=== PATIENT | female | born 1960 | race Caucasian/White ===

== ENCOUNTER 2017-01-07 09:18 | Inpatient (IN) | payer BC, OTHER ==
[~2017-01-07] VITALS: Ht 160 cm; Wt 56.7 kg
[2017-01-07] MEDS ORDERED: ONDANSETRON 4 MG INJ IV STA ×2 (09:43→11:28)
[2017-01-07] MEDS ORDERED: HYDROmorphONE 1 MG/ML SYG IV STA ×2 (09:43→11:28)
[2017-01-07] MEDS ORDERED: SOD CHLORIDE 0.9% 1,000 ML IV STA (09:43)
[2017-01-07 10:09] LABS: ADD SCAN DIFF NO
[2017-01-07 10:13] LABS: BASOPHILS % 0.2 % (0.0-2.0); EOSINOPHILS # 0.1 10^3/ul (0.0-0.5); EOSINOPHILS % 1.1 % (0.0-7.0); HEMOGLOBIN 13.5 g/dl (12.0-16.0); LYMPHOCYTES # 1.6 10^3/ul (0.8-2.9); LYMPHOCYTES % 20.1 % (15.0-51.0); MEAN CORPUSCULAR HEMOGLOBIN 31.1 pg (29.0-33.0); MEAN CORPUSCULAR HGB CONC 33.8 g/dl (32.0-37.0); MEAN CORPUSCULAR VOLUME 92.2 fl (82.0-101.0); MEAN PLATELET VOLUME 9.5 fl (7.4-10.4); MONOCYTE # 0.4 10^3/ul (0.3-0.9); MONOCYTES % 5.1 % (0.0-11.0); NEUTROPHILS % 73.3 % (39.0-77.0); PLATELET COUNT 215 10^3/UL (140-415); RED BLOOD COUNT 4.34 10^6/ul (4.20-5.40); RED CELL DISTRIBUTION WIDTH 12.7 % (11.5-14.5); WHITE BLOOD COUNT 8.2 10^3/ul (4.8-10.8)
[2017-01-07 10:21] LABS: POTASSIUM 3.7 mmol/L (3.5-5.1)
[2017-01-07 10:23] LABS: ALBUMIN/GLOBULIN RATIO 1.66; BILIRUBIN,INDIRECT 0.3 mg/dl (0-1.1); BILIRUBIN,TOTAL 0.3 mg/dl (0.2-1.3); CREATININE 0.57 mg/dl (0.44-1.00); TOTAL PROTEIN 6.4 g/dl (6.1-8.1)
[2017-01-07 10:23] LABS: ADD UMIC NO; URINE BILIRUBIN (Dip) NEGATIVE (NEGATIVE); URINE BLOOD (Dip) NEGATIVE (NEGATIVE); URINE COLOR LT. YELLOW (YELLOW); URINE GLUCOSE (Dip) NEGATIVE (NEGATIVE); URINE KETONES (Dip) NEGATIVE (NEGATIVE); URINE LEUKOCYTE ESTERASE (Dip) NEGATIVE (NEGATIVE); URINE NITRITE (Dip) NEGATIVE (NEGATIVE); URINE TOTAL PROTEIN (Dip) NEGATIVE (NEGATIVE); URINE UROBILINOGEN (Dip) 0.2 E.U./dL (0.1-1.0)
[2017-01-07 10:24] LABS: CALCIUM 10.2 mg/dl (8.4-10.2)
--- NOTE | 2017-01-07 10:34 | RADRPT ---
PROCEDURE: US Abdomen (right upper quadrant). CLINICAL INDICATION: Right upper quadrant abdomen pain. TECHNIQUE: Multiple real-time longitudinal and transverse images of the right upper quadrant of th e abdomen were acquired utilizing a curved array transducer. Images were reviewed on a high-resoluti on PACS workstation. COMPARISON: None FINDINGS: The liver is normal in size and echogenicity. There is no focal hepatic lesion. Color Doppler and pulsed Doppler sonography demonstrate normal a ntegrade flow in the portal vein. The gallbladder is normal with no stones or wall thickening. There is no pericholecystic fluid natali ection. The bile ducts are normal with the common bile duct measuring 3.6 mm in diameter. The visualized portions of the pancreas are unremarkable with obscuration of the tail of the pancrea s. No free fluid is present. The right kidney measures 11.1 x 3.7 x 4.6 cm. There is normal echogenicity of the right kidney. There is no perinephric fluid collection. No hydronephrosis, mass, or calculus is seen. IMPRESSION: 1. Unremarkable right upper quadrant abdomen ultrasound. RPTAT: QQ .Vikram Dominguez MD, Date Time Electronically viewed and signed by .Vikram Dominguez MD, on 01/07/2017 10:33 .R/
--- NOTE | 2017-01-07 10:41 | RADRPT ---
PROCEDURE: CT Abdomen and Pelvis without contrast. CLINICAL INDICATION: Abdominal and pelvic pain. Vomiting. TECHNIQUE: CT scan of the abdomen and pelvis without contrast was performed. Coronal and sagittal reformatted images were obtained from the axial source images. Images were reviewed on a high-resolu aka-aki [employer]on PACS workstation. Total exam DLP is 283.03 mGy-cm. CTDIvol is 5.16 mGy. One or more of the fo llowing dose reduction techniques were used: Automated exposure control, adjustment of the mA and/or kV according to patient size, use of iterative reconstruction technique. COMPARISON: None. FINDINGS: The lung bases are normal. There is no pleural effusion. The liver is normal in size and attenuation. There is no focal hepatic lesion. The gallbladder and bile ducts are normal. The spleen is normal in size. There is no focal splenic lesion. Both adrenals are normal with no enlargement or mass. The pancreas is grossly abnormal with enlargement of the head and neck and surrounding mesenteric ed george consistent with acute pancreatitis. There is no fluid collection or mass to suggest abscess or pseudocyst. Small calcifications are present in the head of the pancreas consistent with chronic pa ncreatitis. There is no renal mass or hydronephrosis. There is no renal calculus or ureteral calculus. The abdominal aorta is not dilated. There is no retroperitoneal lymphadenopathy or mass. There is no pelvic lymphadenopathy or mass. The bladder and distal ureters are normal. The periappendiceal region is unremarkable with no evidence of appendicitis. The bowel is unremarkable. There is no free air. A small amount of free fluid is present in the pelvis. The osseous structures are unremarkable with no fracture or lytic lesion. IMPRESSION: 1. Acute pancreatitis. No abscess or pseudocyst. 2. Calcifications in the head of the pancreas consistent with chronic pancreatitis. 3. Small amount of free fluid in the pelvis. 4. Otherwise normal CT scan of the abdomen and pelvis. RPTAT: QQ .Vikram Dominguez MD, MD Date Time Electronically viewed and signed by .Vikram Dominguez MD, on 01/07/2017 10:41 .R/
[2017-01-07] MEDS ORDERED: ALPR2TAB PO (11:37)
[2017-01-07] MEDS ORDERED: LIOT25TA3 PO (11:38)
--- NOTE | 2017-01-07 11:54 | ERA ---
ER Documentation Chief Complaint Date/Time DATE: 01/07/17 TIME: 11:50 Chief Complaint R SIDE SUDDEN ONSET ABD PAIN WITH NAUSEA ONSET ABOUT 0300 HPI 56 yo F no pmhx who presents to ED with abd pain. Sudden onset of right sided abdominal pain since 3 am. Associated NBNB emesis and single loose stool. Patient does drink ETOH daily. No chest pain, cough. Pain is 10/10. ROS All systems reviewed and are negative except as per history of present illness. Medications Home Meds Reported Medications Liothyronine Sodium* (Cytomel*) 25 Mcg Tablet, 25 MCG PO DAILY, TAB 01/07/17 Alprazolam* (Xanax*) 2 Mg Tablet, 2 MG PO QHS Y for ANXIETY, TAB 01/07/17 Allergies Allergies: Coded Allergies: No Known Allergy (Unverified , 01/07/17) PMhx/Soc History of Surgery: Yes (sinus) Anesthesia Reaction: No Hx Neurological Disorder: No Hx Respiratory Disorders: No Hx Cardiac Disorders: No Hx Psychiatric Problems: Yes (anxiety) Hx Miscellaneous Medical Probl: Yes (ulcers) Hx Alcohol Use: Yes Hx Substance Use: No Hx Tobacco Use: Yes Smoking Status: Current every day smoker FmHx Family History: No diabetes Physical Exam Vitals Vital Signs Date Time Temp Pulse Resp B/P Pulse Ox O2 Delivery O2 Flow Rate FiO2 01/07/17 10:00 98.8 80 22 160/94 97 Room Air 01/07/17 09:26 98.8 80 22 160/94 97 Physical Exam General: Well developed, well nourished, no acute distress Head: Normocephalic, atraumatic. Eyes: Pupils equally reactive, EOM intact ENT: Moist mucous membranes Neck: Supple, no lymphadenopathy Respiratory: Lungs clear bilaterally, no distress Cardiovascular: RRR, no murmurs, rubs, or gallops Abdominal: Soft, right sided abd TTP neg murphys and no TTP at mcburneys : Deferred MSK: No edema, no unilateral swelling, 5/5 strength Neurologic: Alert and oriented, moving all extremities, normal speech, no focal weakness, no cerebellar signs Skin: No rash Psych: Normal mood Result Diagram: 01/07/17 0950 01/07/17 0950 Results 24 hrs Laboratory Tests Test 01/07/17 09:50 01/07/17 10:14 Alanine Aminotransferase (ALT/SGPT) 25IU/L Albumin 4.0g/dl Albumin/Globulin Ratio 1.66 Alkaline Phosphatase 91IU/L Anion Gap 16 Aspartate Amino Transf (AST/SGOT) 25IU/L Basophils # 0.010^3/ul Basophils % 0.2% Blood Urea Nitrogen 12mg/dl Calcium Level 10.2mg/dl Carbon Dioxide Level 28mmol/L Chloride Level 107mmol/L Creatinine 0.57mg/dl Direct Bilirubin 0.00mg/dl Eosinophils # 0.110^3/ul Eosinophils % 1.1% Globulin 2.40g/dl Glucose Level 101mg/dl Hematocrit 40.0% Hemoglobin 13.5g/dl Indirect Bilirubin 0.3mg/dl Lipase 50710I/L Lymphocytes # 1.610^3/ul Lymphocytes % 20.1% Mean Corpuscular Hemoglobin 31.1pg Mean Corpuscular Hemoglobin Concent 33.8g/dl Mean Corpuscular Volume 92.2fl Mean Platelet Volume 9.5fl Monocytes # 0.410^3/ul Monocytes % 5.1% Neutrophils # 6.010^3/ul Neutrophils % 73.3% Nucleated Red Blood Cells # 0.010^3/ul Nucleated Red Blood Cells % 0.0/100WBC Platelet Count 68113^3/UL Potassium Level 3.7mmol/L Red Blood Count 4.3410^6/ul Red Cell Distribution Width 12.7% Sodium Level 147mmol/L Total Bilirubin 0.3mg/dl Total Protein 6.4g/dl White Blood Count 8.210^3/ul Urine Bilirubin NEGATIVE Urine Clarity CLEAR Urine Color LT. YELLOW Urine Glucose NEGATIVE% Urine Hemoglobin NEGATIVE Urine Ketones NEGATIVE Urine Leukocyte Esterase NEGATIVE Urine Nitrite NEGATIVE Urine Specific [place] 1.020 Urine Total Protein NEGATIVE Urine Urobilinogen 0.2 E.U./dL Urine pH 6.0 Current Medications Medications (Trade) Dose Ordered Sig/Mike Route PRN Reason Start Time Stop Time Status Last Admin Dose Admin Sodium Chloride (NS) 1,000 ml @ 1,000 mls/hr Q1H STAT IV 01/07/17 09:43 01/07/17 10:42 DC 01/07/17 09:50 Hydromorphone HCl (Dilaudid) 1 mg ONCE STAT IV 01/07/17 09:43 01/07/17 09:45 DC 01/07/17 09:51 Ondansetron HCl (Zofran Inj) 4 mg ONCE STAT IV 01/07/17 09:43 01/07/17 09:45 DC 01/07/17 09:50 Hydromorphone HCl (Dilaudid) 1 mg ONCE STAT IV 01/07/17 11:28 01/07/17 11:29 DC 01/07/17 11:34 Ondansetron HCl (Zofran Inj) 4 mg ONCE STAT IV 01/07/17 11:28 01/07/17 11:29 DC 01/07/17 11:33 Ondansetron HCl (Zofran Inj) 4 mg BRIDGE ORDER PRN IV NAUSEA AND/OR VOMITING 01/07/17 12:00 01/08/17 11:59 Acetaminophen (Tylenol Tab) 650 mg ER BRIDGE PRN PO MILD PAIN/FEVER 01/07/17 12:00 01/08/17 11:59 Procedures/MDM EKG, MONITORS, & DIAGNOSTIC IMAGING: CT a/p IMPRESSION: 1. Acute pancreatitis. No abscess or pseudocyst. 2. Calcifications in the head of the pancreas consistent with chronic pancreatitis. 3. Small amount of free fluid in the pelvis. 4. Otherwise normal CT scan of the abdomen and pelvis. RPTAT: QQ US gb IMPRESSION: 1. Unremarkable right upper quadrant abdomen ultrasound. RPTAT: QQ LAB INTERPRETATION: elevated lipase MEDICAL DECISION MAKING: Patient with right sided abdominal pain. Broad differential including bowel obstruction, acute appendicitis. Less concern for hepatobiliary obstruction. Consider pancreatitis given alcohol use. Patient seems to be in an extreme amount of pain. Low concern for acute aortic process. ER COURSE: The patient has been given IV fluids multiple doses of pain medication. Laboratory analysis shows significant acute pancreatitis. The patient does drink alcohol which is likely the source. No evidence of hepatobiliary obstruction. Inpatient hospitalization, n.p.o. status would be reasonable. Patient is agreeable. Given significant elevation of lipase patient is at high risk for complications. I kept the patient and/or family informed of laboratory and diagnostic imaging results throughout the emergency room course. DISPOSITION PLAN: Medical surgical admission for management of acute pancreatitis CONSULTATION: Accepting care team and consultations: I discussed the current laboratory data, diagnostic imaging and emergency care provided. Admitting team: Dr. Taylor Admitting team indication: Insurance directed Departure Diagnosis: Primary Impression: Acute pancreatitis Qualified Code: K85.90 - Acute pancreatitis, unspecified complication status, unspecified pancreatitis type Additional Impression: Right sided abdominal pain Condition: Stable ABBY TAM MD Jan 07, 2017 11:54
[2017-01-07] MEDS ORDERED: ONDANSETRON 4 MG INJ IV PRN ×2 (12:00→15:30)
[2017-01-07] MEDS ORDERED: ACETAMINOPHEN 325 MG TAB PO PRN (12:00)
[2017-01-07 12:05] VITALS: TEMP 98.5
[2017-01-07 13:00] VITALS: BP 142/85; PULSE 67; RESP 20
[2017-01-07 13:34] VITALS: Ht 160 cm; Wt 56.7 kg
[2017-01-07] MEDS ORDERED: morphine 4 MG/ML VIAL IV PRN (15:30)
[2017-01-07] MEDS ORDERED: hydrALAzine 20 MG INJ IV PRN (15:30)
[2017-01-07] MEDS: DEXTROSE 5%-0.45% NACL 1,000 ML IV SCH ×2 (15:50→23:52)
[2017-01-07] MEDS: morphine 10 MG INJ IV PRN ×2 (19:34→23:55)
[2017-01-07] MEDS: FAMOTIDINE 20 MG INJ IV SCH (20:40)
[2017-01-07] MEDS: DOCUSATE SODIUM 100 MG CAP PO SCH (20:40)
[2017-01-07] MEDS: CHLORDIAZEPOXIDE 25 MG CAP PO SCH (20:40)
[2017-01-07 22:09] VITALS: BP 159/89; RESP 20
--- NOTE | 2017-01-08 05:04 | HP ---
DATE OF ADMISSION: 01/07/2017 PRESENTING COMPLAINT: Abdominal pain. HISTORY OF PRESENTING COMPLAINT: This is a 56-year-old female who reports that she daily drink a sm all glass of wine with dinner, sometimes more than one glass, but does not consider herself a heavy alcohol use. She reports that she was in her normal state of health until about 3:15 a.m. this morn ing when she was woken up with the worst pain she has ever felt in her abdomen. Interestingly, pain is not in the epigastric area only but is more in the right mid flank area and radiates upward to t he right upper quadrant and epigastric area. It was associated with a lot of nausea and vomiting. She actually had 3 bowel movements, 2 of which were normal, and 1 was diarrhea. She had no fever or BPH. There was no blood in her stool or in her urine. She had no black stools. She denies ever h aving any episodes of pancreatitis before; however, in the emergency room, serum lipase was elevated at 19,000 consistent with the diagnosis of acute pancreatitis, likely secondary to alcohol use. Amara prather is being admitted for this. PAST MEDICAL HISTORY: The patient reports only, I believe, borderline hypertension. The patient kelly s a history of hypothyroidism. PAST SURGICAL HISTORY: She has had ____ surgery, and she had a history of GI bleed which she report s is from medications she is using for chronic migraines. ALLERGIES: NO KNOWN ALLERGIES. SOCIAL HISTORY: Drinks a glass of wine daily and smokes tobacco but is trying to quit. Occasional marijuana use. FAMILY HISTORY: Positive for pancreatic cancer in her father, not alcohol related. REVIEW OF SYSTEMS: A 12-point review of system was done. Pertinent findings are as noted in the HP I. PHYSICAL EXAMINATION: VITAL SIGNS: When she came in, temperature 98.8, pulse was 80, respirations 22, blood pressure 160/ 94, saturations 97% on room air. When I saw the patient, she was lying in bed. She seemed comforta ble, but she was asking for pain medicine. HEENT: Head was normocephalic. Pupils equal and reactive. Mucous membranes were moist. There was no scleral jaundice, mild conjunctival pallor. Posterior pharynx was clear of exudate. NECK: Supple without adenopathy, JVD, or tenderness. CHEST: Clear to auscultation with good air entry on both sides. CARDIOVASCULAR: Heart sounds S1 and 2 without murmurs or tachycardia. ABDOMEN: She was mildly tender in the epigastric and right upper quadrant and actually right mid ab domen as well. However, the rest of the abdomen was soft, nondistended, and she had normoactive bow el sounds. EXTREMITIES: She had no lower extremity edema. NEUROLOGIC: She was able to move all 4 extremities without deficits. She had no facial asymmetry. SKIN: Devoid of rash or jaundice. LABORATORY VALUES: CBC was completely normal as was a CMP. Abnormality on her labs was the sodium of 147 and lipase level of 19,647. Urinalysis was not suggestive of a urinary tract infection. She had a CT of the abdomen and pelvis without contrast that showed acute pancreatitis with no abscess or pseudocyst. There were calcifications in the head of the pancreas consistent with chronic pancre atitis and a small amount of free fluid in the pelvis. The patient had a gallbladder ultrasound padmaja t was read as unremarkable with no CBD dilation. Gallbladder was normal with no stools or wall thic kening and no pericholecystic fluid collection. IMPRESSION: A 56-year-old female who presented with acute onset abdominal pain with the followin. Acute on chronic pancreatitis, likely alcohol related. 2. History of pancreatic cancer. 3. Alcohol abuse, although the patient is not aware of this. 4. Chronic hypothyroidism. PLAN: Admit the patient and manage her per recommendations. The plan of care for pancreatitis with n.p.o., intravenous fluids, pain control, and H2 sarai therapy IV b.i.d. Because of her history of alcoholism, she is also going to be put on a banana bag. For her thyroid disease, we will resume her home Cytomel. We will get a TSH and thyroid profile to assess her chronic control. We will al so get a lipid profile to ensure that her pancreatitis is not from hypertriglyceridemia, though base d on her history, it is likely from alcohol use. She will probably benefit from provision of resour heather to help with alcohol abuse; however, as the patient is not convinced that she has an alcohol pro blem, she is unlikely to make use of those. Prophylaxis will be with H2 sarai and SCDs. For inte rventions and further information, please review the patient's chart and my orders. Admission time has been about 45 minutes. Dictated By: JOY NORRIS MD, BA/YOGI PARISI: 01/07/2017 19:35:05 Conf#: [id number] DID#: [id number]
[2017-01-08 05:40] LABS: ADD SCAN DIFF NO
[2017-01-08 05:51] LABS: ALBUMIN 3.5 g/dl (3.3-4.9)
[2017-01-08 05:52] LABS: POTASSIUM 3.5 mmol/L (3.5-5.1)
[2017-01-08 05:53] LABS: BASOPHILS % 0.4 % (0.0-2.0); EOSINOPHILS # 0.2 10^3/ul (0.0-0.5); EOSINOPHILS % 4.8 % (0.0-7.0); HEMATOCRIT 36.2 % (37.0-47.0); HEMOGLOBIN 11.9 g/dl (12.0-16.0); LYMPHOCYTES # 2.1 10^3/ul (0.8-2.9); MEAN CORPUSCULAR HGB CONC 32.9 g/dl (32.0-37.0); MEAN CORPUSCULAR VOLUME 94.3 fl (82.0-101.0); MEAN PLATELET VOLUME 9.6 fl (7.4-10.4); MONOCYTE # 0.4 10^3/ul (0.3-0.9); NEUTROPHIL # 2.2 10^3/ul (1.6-7.5); NEUTROPHILS % 44.6 % (39.0-77.0); PLATELET COUNT 186 10^3/UL (140-415); RED BLOOD COUNT 3.84 10^6/ul (4.20-5.40); RED CELL DISTRIBUTION WIDTH 12.8 % (11.5-14.5)
[2017-01-08 05:54] LABS: ALBUMIN/GLOBULIN RATIO 1.52; BILIRUBIN,INDIRECT 0.3 mg/dl (0-1.1); BILIRUBIN,TOTAL 0.3 mg/dl (0.2-1.3); CREATININE 0.6 mg/dl (0.44-1.00); TOTAL PROTEIN 5.8 g/dl (6.1-8.1)
[2017-01-08 05:55] LABS: CALCIUM 8.4 mg/dl (8.4-10.2); MAGNESIUM 1.7 mg/dl (1.7-2.5)
[2017-01-08 06:25] LABS: THYROID STIMULATING HORMONE 4.85 MIU/L (0.465-4.680)
[2017-01-08] MEDS: DEXTROSE 5%-0.45% NACL 1,000 ML IV SCH ×3 (07:30→17:07)
[2017-01-08 07:48] VITALS: BP 130/74; RESP 18
[2017-01-08] MEDS: FAMOTIDINE 20 MG INJ IV SCH ×2 (08:15→21:14)
[2017-01-08] MEDS: MULTIVITAMINS 10 ML, THIAMINE 100 MG, FOLIC ACID 1 MG in SOD CHLORIDE 0.9% 1,000 ML IVPB SCH (08:15)
[2017-01-08] MEDS: CHLORDIAZEPOXIDE 25 MG CAP PO SCH ×3 (08:15→21:13)
[2017-01-08] MEDS: DOCUSATE SODIUM 100 MG CAP PO SCH ×2 (08:15→21:13)
[2017-01-08] MEDS: HYDROCODONE/APAP (7.5/325) TAB PO PRN ×3 (08:15→21:14)
[2017-01-08] MEDS ORDERED: INFLUENZA VIRUS VACCINE 0.5 ML (DISPENSING) IM* ONE (09:00)
[2017-01-08] MEDS ORDERED: LIOTHYRONINE 25 MCG TAB PO SCH (09:00)
--- NOTE | 2017-01-08 11:50 | PN ---
Date/Time of Note Date/Time of Note DATE: 01/08/17 TIME: 11:45 Assessment/Plan VTE Prophylaxis VTE Prophylaxis Intervention: contraindicated Lines/Catheters IV [facility] Peripheral IV Urinary Cath still in place: No Assessment/Plan Problems: (1) Hypothyroidism (acquired) Status: Chronic Comment: Patient reports she has always been treated with liothyronine as opposed to any other replacement preparation. This is somewhat interesting regimen given the liothyronine does not have the serum half-life to be used on a once a day basis. I will transition her over to a more commonly use therapeutic (2) Migraine syndrome Status: Chronic Comment: She is having migraine now but reports she gets migraine less than once a month. Please note that her cyclical vomiting could be on this although given some of the other social features and the pancreatitis and the imaging I am not thinking so. Right now she does not make criteria for administration of prophylactic therapy (3) History of peptic ulcer disease Status: Resolved Comment: She reports a remote history of peptic ulcer disease with major GI bleed in the past while using a lot of nonsteroidal anti-inflammatory drugs for headaches. (4) Alcohol consumption four to six days per week Status: Chronic Comment: In reviewing with her she reports that she drinks every day and drinks alternatively between 4 ounce glass of wine and a whole bottle. In addition there are mixed drinks involved. Given the totality of everything I suspect that her alcohol consumption is high enough to have caused the problems please see below (5) Acute pancreatitis Status: Acute Comment: Patient again denies any known prior history of pancreatitis but based on the CT scan I believe she does have chronic pancreatitis. I do not believe that this is on the basis of an undiagnosed case of cystic fibrosis or hypertriglyceridemia or gallstones etc. She has been counseled that she must discontinue alcohol consumption per permanently. In the meantime in this acute phase she is improving nicely Qualifiers: Pancreatitis type: unspecified pancreatitis type Acute pancreatitis complication: unspecified Qualified Code: K85.90 - Acute pancreatitis, unspecified complication status, unspecified pancreatitis type Subjective 24 Hr Interval Summary Free Text/Dictation Patient reports that she is having a headache and her abdominal pain but is better Constitutional: no complaints (Denies fever chills or sweats) Eyes: no complaints (Denies scintillating scotomata) ENT: no complaints Respiratory: no complaints Gastrointestinal: pain (Right sided abdominal pain but less so) Genitourinary: no complaints Musculoskeletal: no complaints Neurologic: headache (Having a migraine at this time) Exam/Review of Systems Vital Signs Vitals Vital Signs Date Time Temp Pulse Resp B/P Pulse Ox O2 Delivery O2 Flow Rate FiO2 01/08/17 07:48 98.8 68 18 130/74 96 01/07/17 13:00 Room Air Intake and Output 01/07/17 01/07/17 01/08/17 14:59 22:59 06:59 Intake Total 375 ml 1250 ml Balance 375 ml 1250 ml Exam Constitutional: alert, oriented Neck: non-tender, supple Respiratory: clear to auscultation, normal air movement Cardiovascular: nl pulses, regular rate and rhythm Gastrointestinal: tender (Right upper quadrant) Results Result Diagram: 01/08/172 01/08/17 0452 Results 24 hrs Laboratory Tests Test 01/08/17 04:52 Alanine Aminotransferase (ALT/SGPT) 29 Albumin 3.5 Albumin/Globulin Ratio 1.52 Alkaline Phosphatase 83 Amylase Level 519 H Anion Gap 14 Aspartate Amino Transf (AST/SGOT) 22 Basophils # 0.0 Basophils % 0.4 Blood Urea Nitrogen 4 L Calcium Level 8.4 Carbon Dioxide Level 30 Chloride Level 105 Cholesterol Level 158 Cholesterol/HDL Ratio 2.0 Creatinine 0.60 Direct Bilirubin 0.00 Eosinophils # 0.2 Eosinophils % 4.8 Free Thyroxine Index 0.56 L Globulin 2.30 Glucose Level 87 HDL Cholesterol 76 Hematocrit 36.2 L Hemoglobin 11.9 L Indirect Bilirubin 0.3 LDL Cholesterol, Calculated 62 Lipase 5378 H Lymphocytes # 2.1 Lymphocytes % 42.0 Magnesium Level 1.7 Mean Corpuscular Hemoglobin 31.0 Mean Corpuscular Hemoglobin Concent 32.9 Mean Corpuscular Volume 94.3 Mean Platelet Volume 9.6 Monocytes # 0.4 Monocytes % 8.0 Neutrophils # 2.2 Neutrophils % 44.6 Nucleated Red Blood Cells # 0.0 Nucleated Red Blood Cells % 0.0 Platelet Count 186 Potassium Level 3.5 Red Blood Count 3.84 L Red Cell Distribution Width 12.8 Sodium Level 145 H Thyroid Stimulating Hormone (TSH) 4.850 H Thyroxine (T4) 1.6 *L Total Bilirubin 0.3 Total Protein 5.8 L Triglycerides Level 101 Triiodothyronine (T3) Uptake 35.0 White Blood Count 5.0 # Medications Medications Current Medications Ondansetron HCl (Zofran Inj) 4 mg Q6H PRN IV NAUSEA AND/OR VOMITING Last administered on 01/08/17 08:13; Admin Dose 4 MG; Start 01/07/17 at 15:30 Acetaminophen/ Hydrocodone Bitart (Amo (7.5-325)) 1 tab Q6H PRN PO pain Last administered on 01/08/17 08:15; Admin Dose 1 TAB; Start 01/07/17 at 15:30 Docusate Sodium 100 mg 100 mg BID PO Last administered on 01/08/17 08:15; Admin Dose 100 MG; Start 01/07/17 at 21:00 Dextrose/Sodium Chloride 1,000 ml @ 125 mls/hr Q8H IV Last administered on 23:52; Admin Dose 125 MLS/HR; Start 01/07/17 at 15:30 Multivitamins/ Thiamine HCl/ Folic Acid/Sodium Chloride (Mvi-12 Adult/ Vitamin B1/Folic Acid/NS) 1,011.2 ml @ 125 mls/ hr DAILY@09 IVPB Last administered on 01/08/17 08:15; Admin Dose 125 MLS/HR; Start 01/08/17 at 09:00; Stop 01/11/17 at 08:59 Famotidine (Pepcid Iv) 20 mg BID IV Last administered on 01/08/17 08:15; Admin Dose 20 MG; Start 01/07/17 at 21:00 Chlordiazepoxide (Librium) 25 mg TID PO Last administered on 01/08/17 08:15; Admin Dose 25 MG; Start 01/07/17 at 21:00 Lorazepam (Ativan) 0.5 mg Q6H PRN IV anxiety; Start 01/07/17 at 15:30 Liothyronine Sodium (Cytomel) 25 mcg DAILY PO Last administered on 01/08/17 08 :15; Admin Dose 25 MCG; Start 01/08/17 at 09:00 Hydralazine HCl (Apresoline) 10 mg Q6H PRN IV sbp>160mmhg; Start 01/07/17 at 15 :30 Morphine Sulfate (morphine) 5 mg Q4H PRN IV PAIN Last administered on 23:55; Admin Dose 5 MG; Start 01/07/17 at 19:30 MARY CASTANEDA MD Jan 08, 2017 11:50
[2017-01-08] MEDS ORDERED: LEVOTHYROXINE 125 MCG TAB PO ONE (12:00)
[2017-01-08] MEDS: morphine 10 MG INJ IV PRN ×2 (15:38→20:08)
[2017-01-08 19:30] VITALS: BP 139/84; PULSE 75; RESP 18
[2017-01-09] MEDS: morphine 10 MG INJ IV PRN ×4 (00:01→17:34)
[2017-01-09] MEDS: DEXTROSE 5%-0.45% NACL 1,000 ML IV SCH ×4 (00:04→18:06)
[2017-01-09] MEDS: LEVOTHYROXINE 125 MCG TAB PO SCH (05:49)
[2017-01-09 06:01] LABS: ADD SCAN DIFF NO
[2017-01-09 06:16] LABS: BASOPHILS % 0.3 % (0.0-2.0); EOSINOPHILS # 0.4 10^3/ul (0.0-0.5); EOSINOPHILS % 6.1 % (0.0-7.0); HEMATOCRIT 35.4 % (37.0-47.0); HEMOGLOBIN 11.9 g/dl (12.0-16.0); LYMPHOCYTES # 1.9 10^3/ul (0.8-2.9); LYMPHOCYTES % 29.9 % (15.0-51.0); MEAN CORPUSCULAR HEMOGLOBIN 31.5 pg (29.0-33.0); MEAN CORPUSCULAR HGB CONC 33.6 g/dl (32.0-37.0); MEAN CORPUSCULAR VOLUME 93.7 fl (82.0-101.0); MONOCYTE # 0.6 10^3/ul (0.3-0.9); MONOCYTES % 8.8 % (0.0-11.0); NEUTROPHIL # 3.4 10^3/ul (1.6-7.5); NEUTROPHILS % 54.6 % (39.0-77.0); PLATELET COUNT 165 10^3/UL (140-415); RED BLOOD COUNT 3.78 10^6/ul (4.20-5.40); RED CELL DISTRIBUTION WIDTH 12.6 % (11.5-14.5); WHITE BLOOD COUNT 6.2 10^3/ul (4.8-10.8)
[2017-01-09 06:34] LABS: ALBUMIN 3.4 g/dl (3.3-4.9); POTASSIUM 3.2 mmol/L (3.5-5.1)
[2017-01-09 06:37] LABS: ALBUMIN/GLOBULIN RATIO 1.41; BILIRUBIN,INDIRECT 0.3 mg/dl (0-1.1); BILIRUBIN,TOTAL 0.3 mg/dl (0.2-1.3); CALCIUM 8.9 mg/dl (8.4-10.2); CREATININE 0.57 mg/dl (0.44-1.00); TOTAL PROTEIN 5.8 g/dl (6.1-8.1)
[2017-01-09] MEDS: HYDROCODONE/APAP (7.5/325) TAB PO PRN ×3 (07:45→20:17)
[2017-01-09 07:52] VITALS: BP 127/76; RESP 20
[2017-01-09] MEDS: MULTIVITAMINS 10 ML, THIAMINE 100 MG, FOLIC ACID 1 MG in SOD CHLORIDE 0.9% 1,000 ML IVPB SCH (08:18)
[2017-01-09] MEDS: FAMOTIDINE 20 MG INJ IV SCH ×2 (08:18→20:17)
[2017-01-09] MEDS: THIAMINE 100 MG TAB PO SCH (08:18)
[2017-01-09] MEDS: DOCUSATE SODIUM 100 MG CAP PO SCH ×2 (08:18→20:17)
[2017-01-09] MEDS: CHLORDIAZEPOXIDE 25 MG CAP PO SCH ×3 (08:19→20:18)
[2017-01-09] MEDS: LORAZEPAM 2 MG INJ IV PRN ×2 (08:57→22:48)
[2017-01-09] MEDS: OXYMETAZOLINE NASAL SCH ×3 (12:00→20:17)
--- NOTE | 2017-01-09 18:44 | PN ---
Date/Time of Note Date/Time of Note DATE: 01/09/17 TIME: 18:39 Assessment/Plan VTE Prophylaxis VTE Prophylaxis Intervention: ambulation Lines/Catheters IV Catheter Type (from [facility]): Peripheral IV Urinary Cath still in place: No Assessment/Plan Chief Complaint/Hosp Course 1. Acute pancreatitis possibly secondary to alcohol abuse Start a clear liquid diet today Alternative etiologies such as gallstones are unlikely as gallbladder ultrasound and CT abdomen are normal 2. Hypothyroidism Patient reports she has always been treated with liothyronine as opposed to any other replacement preparation. This is somewhat interesting regimen given the liothyronine does not have the serum half-life to be used on a once a day basis , started on Synthroid 3. Migraine headaches Pain control 4. Hypokalemia Replete Prophylaxis: Ambulate Problems: Subjective 24 Hr Interval Summary Constitutional: no complaints Exam/Review of Systems Vital Signs Vitals Vital Signs Date Time Temp Pulse Resp B/P Pulse Ox O2 Delivery O2 Flow Rate FiO2 01/09/17 07:52 98.6 71 20 127/76 95 01/08/17 19:30 Room Air Intake and Output 01/08/17 01/08/17 01/09/17 15:00 23:00 07:00 Intake Total 375 ml 1236.2 ml 1690 ml Balance 375 ml 1236.2 ml 1690 ml Exam Constitutional: alert, oriented Respiratory: clear to auscultation Cardiovascular: regular rate and rhythm Gastrointestinal: non-tender, soft, No distended Musculoskeletal: nl extremities to inspection Results Result Diagram: 01/09/17 0526 01/09/17 0526 Results 24 hrs Laboratory Tests Test 01/09/17 05:26 Alanine Aminotransferase (ALT/SGPT) 17 Albumin 3.4 Albumin/Globulin Ratio 1.41 Alkaline Phosphatase 80 Amylase Level 400 #H Anion Gap 13 Aspartate Amino Transf (AST/SGOT) 19 Basophils # 0.0 Basophils % 0.3 Blood Urea Nitrogen 2 L Calcium Level 8.9 Carbon Dioxide Level 30 Chloride Level 107 Creatinine 0.57 Direct Bilirubin 0.00 Eosinophils # 0.4 Eosinophils % 6.1 Globulin 2.40 Glucose Level 101 Hematocrit 35.4 L Hemoglobin 11.9 L Indirect Bilirubin 0.3 Lipase 4350 H Lymphocytes # 1.9 Lymphocytes % 29.9 Mean Corpuscular Hemoglobin 31.5 Mean Corpuscular Hemoglobin Concent 33.6 Mean Corpuscular Volume 93.7 Mean Platelet Volume 10.0 Monocytes # 0.6 Monocytes % 8.8 Neutrophils # 3.4 Neutrophils % 54.6 Nucleated Red Blood Cells # 0.0 Nucleated Red Blood Cells % 0.0 Platelet Count 165 Potassium Level 3.2 L Red Blood Count 3.78 L Red Cell Distribution Width 12.6 Sodium Level 147 H Total Bilirubin 0.3 Total Protein 5.8 L White Blood Count 6.2 # Medications Medications Current Medications Ondansetron HCl (Zofran Inj) 4 mg Q6H PRN IV NAUSEA AND/OR VOMITING Last administered on 01/08/17 08:13; Admin Dose 4 MG; Start 01/07/17 at 15:30 Acetaminophen/ Hydrocodone Bitart (Dema (7.5-325)) 1 tab Q6H PRN PO pain Last administered on 01/09/17 14:15; Admin Dose 1 TAB; Start 01/07/17 at 15:30 Docusate Sodium 100 mg 100 mg BID PO Last administered on 01/09/17 08:18; Admin Dose 100 MG; Start 01/07/17 at 21:00 Dextrose/Sodium Chloride 1,000 ml @ 125 mls/hr Q8H IV Last administered on 18:06; Admin Dose 125 MLS/HR; Start 01/07/17 at 15:30 Multivitamins/ Thiamine HCl/ Folic Acid/Sodium Chloride (Mvi-12 Adult/ Vitamin B1/Folic Acid/NS) 1,011.2 ml @ 125 mls/ hr DAILY@09 IVPB Last administered on 01/09/17 08:18; Admin Dose 125 MLS/HR; Start 01/08/17 at 09:00; Stop 01/11/17 at 08:59 Famotidine (Pepcid Iv) 20 mg BID IV Last administered on 01/09/17 08:18; Admin Dose 20 MG; Start 01/07/17 at 21:00 Chlordiazepoxide (Librium) 25 mg TID PO Last administered on 01/09/17 08:19; Admin Dose 25 MG; Start 01/07/17 at 21:00 Lorazepam (Ativan) 0.5 mg Q6H PRN IV anxiety Last administered on 01/09/17 08: 57; Admin Dose 0.5 MG; Start 01/07/17 at 15:30 Hydralazine HCl (Apresoline) 10 mg Q6H PRN IV sbp>160mmhg; Start 01/07/17 at 15 :30 Morphine Sulfate (morphine) 5 mg Q4H PRN IV PAIN Last administered on 17:34; Admin Dose 5 MG; Start 01/07/17 at 19:30 Levothyroxine Sodium (Synthroid) 125 mcg DAILY@06 PO Last administered on 05:49; Admin Dose 125 MCG; Start 01/09/17 at 06:00 Thiamine HCl (Vitamin B1) 100 mg DAILY PO Last administered on 01/09/17 08:18 ; Admin Dose 100 MG; Start 01/09/17 at 09:00; Stop 01/16/17 at 08:59 Patient Own Medication 2 ea BID NASAL Last administered on 01/09/17 12:00; Admin Dose 2 EA; Start 01/09/17 at 13:00 RAYMON HILL Jan 09, 2017 18:44
[2017-01-09] MEDS ORDERED: POTASSIUM CHLORIDE 250 ML IVPB ONE (20:00)
[2017-01-09 20:27] VITALS: BP 149/82; PULSE 67; RESP 18
[2017-01-10 05:38] LABS: ADD SCAN DIFF NO
[2017-01-10 05:40] LABS: BASOPHILS % 0.2 % (0.0-2.0); EOSINOPHILS # 0.5 10^3/ul (0.0-0.5); EOSINOPHILS % 8.2 % (0.0-7.0); HEMATOCRIT 34.7 % (37.0-47.0); HEMOGLOBIN 11.5 g/dl (12.0-16.0); LYMPHOCYTES # 1.7 10^3/ul (0.8-2.9); LYMPHOCYTES % 27.9 % (15.0-51.0); MEAN CORPUSCULAR HEMOGLOBIN 30.7 pg (29.0-33.0); MEAN CORPUSCULAR HGB CONC 33.1 g/dl (32.0-37.0); MEAN CORPUSCULAR VOLUME 92.5 fl (82.0-101.0); MEAN PLATELET VOLUME 9.5 fl (7.4-10.4); MONOCYTE # 0.5 10^3/ul (0.3-0.9); MONOCYTES % 8.4 % (0.0-11.0); NEUTROPHIL # 3.4 10^3/ul (1.6-7.5); NEUTROPHILS % 55.1 % (39.0-77.0); PLATELET COUNT 170 10^3/UL (140-415); RED BLOOD COUNT 3.75 10^6/ul (4.20-5.40); RED CELL DISTRIBUTION WIDTH 12.4 % (11.5-14.5); WHITE BLOOD COUNT 6.2 10^3/ul (4.8-10.8)
[2017-01-10] MEDS: LEVOTHYROXINE 125 MCG TAB PO SCH (05:47)
[2017-01-10] MEDS: LORAZEPAM 2 MG INJ IV PRN (05:47)
[2017-01-10 05:57] LABS: INR 1.05; PROTIME 13.7 Sec (12.2-14.2); PT RATIO 1.1
[2017-01-10 05:58] LABS: POTASSIUM 3.7 mmol/L (3.5-5.1)
[2017-01-10 06:01] LABS: CALCIUM 8.8 mg/dl (8.4-10.2); CREATININE 0.54 mg/dl (0.44-1.00); MAGNESIUM 1.7 mg/dl (1.7-2.5)
[2017-01-10] MEDS: DEXTROSE 5%-0.45% NACL 1,000 ML IV SCH ×2 (07:30→16:34)
[2017-01-10 08:02] VITALS: BP 147/81; RESP 22
[2017-01-10] MEDS: OXYMETAZOLINE NASAL SCH (08:45)
[2017-01-10] MEDS: CHLORDIAZEPOXIDE 25 MG CAP PO SCH ×2 (08:45→12:26)
[2017-01-10] MEDS: DOCUSATE SODIUM 100 MG CAP PO SCH (08:45)
[2017-01-10] MEDS: THIAMINE 100 MG TAB PO SCH (08:45)
[2017-01-10] MEDS: FAMOTIDINE 20 MG INJ IV SCH (08:45)
[2017-01-10] MEDS: MULTIVITAMINS 10 ML, THIAMINE 100 MG, FOLIC ACID 1 MG in SOD CHLORIDE 0.9% 1,000 ML IVPB SCH (08:46)
[2017-01-10] MEDS: morphine 10 MG INJ IV PRN ×2 (13:08→17:08)
[2017-01-10] MEDS ORDERED: LEVO125T PO (14:24)
--- NOTE | 2017-01-10 14:25 | PDOCDIS ---
Discharge Instructions CONDITION Patient Condition: Good HOME CARE INSTRUCTIONS: Diet Instructions: Regular ACTIVITY: Activity Restrictions: No Restrictions FOLLOW UP/APPOINTMENTS Appointments F/U WITH YOUR PCP IN 1-2 WEEKS RAYMON HILL Jan 10, 2017 14:25
[2017-01-10] MEDS: HYDROCODONE/APAP (7.5/325) TAB PO PRN (14:38)
--- NOTE | 2017-01-11 20:56 | DS ---
DATE OF ADMISSION: 01/07/2017 DATE OF DISCHARGE: 01/10/2017 DISCHARGE DIAGNOSES 1. Acute pancreatitis, likely secondary to alcohol abuse and now improved. Alcohol cessation advis ed. 2. Hypothyroidism. Discharged with Synthroid and recommended to stop her liothyronine. 3. History of migraine headaches, stable. HOSPITAL COURSE: The patient is a 56-year-old female with a history of hypothyroidism. The patient does drink several drinks a day. The patient presents with abdominal pain. She was found to have acute pancreatitis and it was felt to be alcohol related, as no other etiology is detected. The pat ient had a gallbladder ultrasound that was unremarkable. She had an abdominopelvic CT that showed a cute pancreatitis. No abscess or pseudocyst. She also had findings of chronic pancreatitis, a smal l amount of free fluid in the pelvis. The patient's UA was negative. Serologies showed no hep B or hep C. INR was intact at 1.1. The patient was kept n.p.o. and was given IV fluids. Her lipase di d trend down. She was able to tolerate a clear liquid diet and she was felt to be stable for discha rge. She was advised to stop drinking. On day of discharge, the patient's vitals, labs, and physic al exam were stable. She had no acute complaints and questions were answered. CONDITION ON DISCHARGE: Stable. DISPOSITION: To home. MEDICATIONS: The patient was given new prescription for Synthroid 125 mcg daily. She was to contin ue her home Xanax. She was recommended to stop taking her home liothyronine. FOLLOWUP: She is to follow up with her PCP in 1-2 weeks. Greater than 30 minutes was spent coordinating discharge of this patient. Dictated By: RAYMON HILL MD BS/NTS Conf#: [id number] DID#: [id number]
== END 2017-01-10 17:45 | disposition home or self-care (01) | DRG 440 ==
LOC: E/R 09:18 → MS2 12:34
PROVIDERS: ADMIT Family Medicine; ATTEND Family Medicine
DX: K85.90 Acute pancreatitis without necrosis or infection, unspecified (principal); E03.9 Hypothyroidism, unspecified; G43.909 Migraine, unspecified, not intractable, without status migrainosus; F10.10 Alcohol abuse, uncomplicated; E87.6 Hypokalemia; Z85.07 Personal history of malignant neoplasm of pancreas
CPT/HCPCS: 36415; 74176; 76705; 80048; 80053; 80061; 81003; 82140; 82150; 83690; 83735; 84100; 84436; 84443; 84479; 85025; 85610; 86803; 87340; 90686; 96374; 96375; 96376; J1170; J2060; J2270; J2405; J3411; J3480; J7030; J7042